=== PATIENT | female | born 1980 | race Caucasian/White ===

== ENCOUNTER 2017-01-13 11:00 | Observation (INO) | payer OTHER ==
[~2017-01-13] VITALS: Ht 160 cm; Wt 60.8 kg
[~2017-01-13 11:00] MED LIST: LACTATED RINGER'S 1,000 ML IV ONE
[2017-01-13] MEDS ORDERED: PREN-96 PO (11:43)
[2017-01-13] MEDS ORDERED: DICY10CA12 PO (11:43)
[2017-01-13] MEDS ORDERED: ONDANSETRON HCL 4 MG/2 ML VIAL IV ONE (12:30)
[2017-01-13] MEDS ORDERED: LACTATED RINGER'S 1,000 ML IV ONE (12:40)
[2017-01-13 12:59] LABS: BUN/Creatinine Ratio 14.3; Calcium 7.6 mg/dL (8.5-10.1)
[2017-01-13] MEDS ORDERED: POTASSIUM CHL 20 Meq TABLET PO ONE (14:00)
== END 2017-01-13 14:53 | disposition home or self-care (01) | DRG 781 ==
LOC: LDRP 11:00
PROVIDERS: ADMIT Specialist; ATTEND Specialist
DX: O21.2 Late vomiting of pregnancy (principal); E87.6 Hypokalemia; O99.283 Endocrine, nutritional and metabolic diseases complicating pregnancy, third trimester; O99.613 Diseases of the digestive system complicating pregnancy, third trimester; K52.9 Noninfective gastroenteritis and colitis, unspecified; Z3A.31 31 weeks gestation of pregnancy
CPT/HCPCS: 36415; 59025; 80048; 81002; 96361; 96374; G0378; J2405; 96365; 96366

== ENCOUNTER 2017-03-12 09:50 | Observation (INO) | payer OTHER ==
[~2017-03-12 09:50] MED LIST changes: +DICY10CA12 PO; -LACTATED RINGER'S 1,000 ML IV ONE; +PREN-96 PO
== END 2017-03-12 12:25 | disposition home or self-care (01) | DRG 782 ==
LOC: LDRP 09:50
PROVIDERS: ADMIT Specialist; ATTEND Specialist
DX: O48.0 Post-term pregnancy (principal); Z3A.40 40 weeks gestation of pregnancy
CPT/HCPCS: 59025; 76818; 81002; G0378

== ENCOUNTER 2017-03-14 15:38 | Observation (INO) | payer OTHER | END 2017-03-14 17:45 | disposition home or self-care (01) | DRG 782 | LOC: LDRP 15:38 | PROVIDERS: ADMIT Obstetrics & Gynecology; ATTEND Obstetrics & Gynecology | DX: O48.0 Post-term pregnancy (principal); Z3A.40 40 weeks gestation of pregnancy | CPT/HCPCS: 59025; 76818; 81002; G0378 ==

== ENCOUNTER 2017-03-16 11:07 | Observation (INO) | payer OTHER | END 2017-03-16 12:45 | disposition home or self-care (01) | DRG 782 | LOC: LDRP 11:07 | PROVIDERS: ADMIT Obstetrics & Gynecology; ATTEND Obstetrics & Gynecology | DX: O48.0 Post-term pregnancy (principal); Z3A.40 40 weeks gestation of pregnancy | CPT/HCPCS: 59025; 76818; 81002; G0378 ==

== ENCOUNTER 2017-03-18 10:55 | Observation (INO) | payer OTHER | END 2017-03-18 12:20 | disposition home or self-care (01) | DRG 782 | LOC: LDRP 10:55 | PROVIDERS: ADMIT Obstetrics & Gynecology; ATTEND Obstetrics & Gynecology | DX: O48.0 Post-term pregnancy (principal); Z3A.40 40 weeks gestation of pregnancy | CPT/HCPCS: 59025; 76818; 81002; G0378 ==

== ENCOUNTER 2017-03-20 03:06 | Observation (INO) | payer OTHER | END 2017-03-20 16:50 | disposition home or self-care (01) | DRG 781 | LOC: LDRP 03:06 | PROVIDERS: ADMIT Specialist; ATTEND Specialist | DX: O48.0 Post-term pregnancy (principal); O26.893 Other specified pregnancy related conditions, third trimester; N89.8 Other specified noninflammatory disorders of vagina; Z3A.41 41 weeks gestation of pregnancy | CPT/HCPCS: 59025; 76818; 81002; G0378 ==

== ENCOUNTER 2017-03-20 19:39 | Inpatient (IN) | payer OTHER ==
[~2017-03-20] VITALS: Ht 160 cm; Wt 63.5 kg
[2017-03-20] MEDS ORDERED: LACTATED RINGER'S 1,000 ML IV SCH (20:12)
[2017-03-20] MEDS ORDERED: LACT. RINGERS/OXYTOCIN 20UNITS 1,000 ML IV SCH (20:12)
[2017-03-20] MEDS ORDERED: DERMOPLAST 60ML BOTTLE TOP PRN (20:15)
[2017-03-20] MEDS ORDERED: NALBUPHINE HCL 10 MG/1ml INJECTION IM PRN (20:15)
[2017-03-20] MEDS ORDERED: PROMETHAZINE HCL 25 MG/ML 1ML IV PRN (20:15)
[2017-03-20] MEDS ORDERED: PHISODERM TOP SOLN 240ML BTL TOP PRN (20:15)
[2017-03-20] MEDS ORDERED: LIDOCAINE 2%HCL (LOCAL ANESTH.) INJ 20ML MDV IJ ONE (20:15)
[2017-03-20] MEDS ORDERED: WITCH HAZEL-GLYCERIN PAD TOP PRN (20:15)
[2017-03-20] MEDS ORDERED: LIDOCAINE HCL 2 %PF INJ 10ML AMP IJ ONE (21:00)
[2017-03-20] MEDS ORDERED: NALOXONE HCL 0.4 MG/ML VIAL IV ONE ×2 (21:00→23:15)
[2017-03-20] MEDS ORDERED: fentaNYL CITRATE 100 MCG/2 ML VL IV ONE (21:00)
[2017-03-20] MEDS ORDERED: fentaNYL W ROPIVACAINE 150 ML EPI SCH ×2 (21:00→23:15)
[2017-03-20] MEDS ORDERED: ePHEDrine SULFATE 50 MG/ML AMP IV ONE ×2 (21:00→23:15)
[2017-03-20 21:04] LABS: Albumin 2.6 g/dL (3.4-5.0); Calcium 8.5 mg/dL (8.5-10.1); Potassium 3.4 mmol/L (3.5-5.1)
[2017-03-20 21:08] LABS: Urine Bacteria NONE SEEN /hpf (None Seen); Urine Blood 1+ /uL (Negative); Urine Specific Gravity 1.004 (1.001-1.035); Urine WBC 2 /hpf (0 - 5)
[2017-03-20 21:08] LABS: Bilirubin, Total 0.2 mg/dL (0.2-1.0)
[2017-03-20 21:09] LABS: Basophils # (auto) 0 uL; Basophils % (auto) 0.4 % (0.0-2.0); Eosinophils # (auto) 0.1 uL; Eosinophils % (auto) 0.8 % (0.0-7.0); Hematocrit 37.5 % (36.0-46.0); Hemoglobin 12.8 g/dL (12.2-16.2); Lymphocytes % (auto) 22.3 % (10.0-50.0); Mean Corpuscular Hemoglobin 31.3 pg (28.0-32.0); Mean Corpuscular Hgb Conc. 34.1 g/dL (32.0-36.0); Mean Corpuscular Volume 91.6 fL (80.0-100.0); Monocytes # (auto) 0.4 uL; Monocytes % (auto) 4.8 % (0.0-12.0); Neutrophils # (auto) 6.5 uL; Neutrophils % (auto) 71.7 % (37.0-80.0); Platelet Count (auto) 251 10^3/uL (140-450); Red Blood Cells 4.09 10^6/uL (4.0-5.20); White Blood Cell 9.1 10^3/uL (4.4-10.8)
[2017-03-20 21:11] LABS: INR 0.98 (0.9-1.15); Partial Thromboplastin Time 25.7 sec (22.64-33.71); Prothrombin Time 10.7 sec (9.37-12.3)
[2017-03-20] MEDS ORDERED: ROPIVACAINE 0.5% (5MG/ML) 20ML AMPULE IJ ONE (22:40)
[2017-03-20] MEDS ORDERED: SODIUM CHLORIDE 0.9% 500 ML IV PRN (23:07)
[2017-03-21] MEDS: IBUPROFEN 600 MG TAB PO PRN ×4 (03:23→19:05)
[2017-03-21 08:00] VITALS: BP 106/59
[2017-03-21] MEDS ORDERED: DOCUSATE CALCIUM 240 MG CAP PO SCH (10:00)
[2017-03-21 12:10] VITALS: BP 121/67
[2017-03-21 16:00] VITALS: BP 117/69
[2017-03-21 19:00] VITALS: BP 132/77
[2017-03-21 23:30] VITALS: BP 107/59
[2017-03-22 03:30] VITALS: BP 120/66
[2017-03-22] MEDS: IBUPROFEN 600 MG TAB PO PRN ×2 (03:36)
[2017-03-22 08:00] VITALS: BP 100/60
[2017-03-22 12:00] VITALS: BP 118/82
== END 2017-03-22 12:00 | disposition home or self-care (01) | DRG 775 ==
LOC: OBSVTOIN 19:39 → LDRP 19:39
PROVIDERS: ADMIT Specialist; ATTEND Specialist
PROC: 10D07Z6 Extraction of Products of Conception, Vacuum, Via Natural or Artificial Opening (ICD-10-PCS; principal; 2017-03-21)
PROC: 0W8NXZZ Division of Female Perineum, External Approach (ICD-10-PCS; 2017-03-21)
PROC: 3E0R3BZ Introduction of Anesthetic Agent into Spinal Canal, Percutaneous Approach (ICD-10-PCS; 2017-03-21)
PROC: 00HU33Z Insertion of Infusion Device into Spinal Canal, Percutaneous Approach (ICD-10-PCS; 2017-03-21)
DX: O48.0 Post-term pregnancy (principal); O42.92 Full-term premature rupture of membranes, unspecified as to length of time between rupture and onset of labor; O69.81X0 Labor and delivery complicated by cord around neck, without compression, not applicable or unspecified; Z37.0 Single live birth; Z3A.41 41 weeks gestation of pregnancy
CPT/HCPCS: 36415; 59409; 62282; 80053; 81001; 81002; 85025; 85610; 85730; 86850; 86900; 86901; 94762; 96361; 96365; G0378; J2590; J3010

== ENCOUNTER → 2017-06-13 | Outpatient (CLI) | payer OTHER ==
[~2017-06-13] MED LIST changes: -DICY10CA12 PO
== END | disposition home or self-care (01) ==
LOC: LAB 11:35
PROVIDERS: ATTEND Obstetrics & Gynecology
DX: C53.9 Malignant neoplasm of cervix uteri, unspecified (principal)